=== PATIENT | female | born 1940 | race Caucasian/White ===

== ENCOUNTER → 2018-09-15 | Outpatient (CLI) | payer MEDICARE ==
[~2018-09-15] MED LIST: ALBU90OI6; ATOR10 PO; CIPR500 PO; FLUC150A PO; Flovent 110 MCG12 GM INH; Pyridium100 MG PO
== END | disposition home or self-care (01) ==
LOC: LAB SHORT 16:08 → LAB EV 16:08
DX: N39.0 Urinary tract infection, site not specified (principal)
CPT/HCPCS: 87077; 87086; 87186

== ENCOUNTER → 2021-04-29 | Outpatient (CLI) | payer MEDICARE ==
[2021-04-29 19:05] LABS: Protein, Urine Random 26.3 mg/dL (0.0-11.9)
[2021-04-29 19:06] LABS: Protein, Urine Quantitative 27.4 mg/dL (0.0-11.9)
[2021-04-29 19:14] LABS: Creatinine, Urine Random 81.3 mg/dL (27.00-270.00); Protein/Creat Ratio, Ur Random 0.3
[2021-04-29 19:15] LABS: Creatinine Urine 77.7 mg/dL (27.00-270.00)
== END | disposition home or self-care (01) ==
LOC: LAB 15:46 → LAB SHORT 15:46
PROVIDERS: Internal Medicine
DX: N18.4 Chronic kidney disease, stage 4 (severe) (principal)
CPT/HCPCS: 82570; 84156

== ENCOUNTER → 2023-03-11 | Outpatient (CLI) | payer MEDICARE ==
[2023-03-11 11:34] LABS: BASOPHILS ABSOLUTE AUTO 0.07 K/mm3 (0.00-0.23); BASOPHILS PERCENT AUTO 1 % (0-2); EOSINOPHILS ABSOLUTE AUTO 0.37 K/mm3 (0.00-0.68); EOSINOPHILS PERCENT AUTO 4 % (0-6); Hematocrit 39.5 % (33.0-51.0); Hemoglobin 12.8 g/dL (11.5-16.0); IMMATURE GRAN ABSOLUTE AUTO 0.02 K/mm3 (0.00-0.10); IMMATURE GRAN PERCENT AUTO 0 % (0-1); LYMPHOCYTES ABSOLUTE AUTO 2.64 K/mm3 (0.84-5.20); LYMPHOCYTES PERCENT AUTO 30 % (21-46); MONOCYTES ABSOLUTE AUTO 0.71 K/mm3 (0.16-1.47); MONOCYTES PERCENT AUTO 8 % (4-13); Mean Corpuscular HGB 31.8 pg (26.0-34.0); Mean Corpuscular HGB Conc 32.4 g/dL (31.5-36.5); Mean Corpuscular Volume 98 fL (80-100); Mean Platelet Volume 8.8 fL (9.1-12.4); NEUTROPHILS ABSOLUTE AUTO 4.89 K/mm3 (1.96-9.15); NEUTROPHILS PERCENT AUTO 56 % (41-73); Platelet Count 266 K/mm3 (150-400); RDW Coefficient Variation 13.6 % (11.7-14.2); Red Blood Cell Count 4.03 M/mm3 (3.80-5.20)
[2023-03-11 11:53] LABS: Albumin, Blood 3.4 g/dL (3.4-5.0); Albumin/Globulin Ratio 0.9 (0.8-1.8); Bilirubin, Total 0.2 mg/dL (0.1-1.0); Bun/Creatinine Ratio 16.8 (12.0-20.0); Calcium, Blood 8.6 mg/dL (8.5-10.1); Creatinine, Blood 1.49 mg/dL (0.40-1.00); Globulin, Blood 3.9 g/dL (2.2-4.0); Magnesium, Blood 1.9 mg/dL (1.6-2.4); Potassium, Blood 3.6 mmol/L (3.5-5.5); Thyroid Stimulating Hormone 1.955 uIU/mL (0.360-4.800); Total Protein, Blood 7.3 g/dL (6.4-8.2)
== END | disposition home or self-care (01) ==
LOC: LAB 11:28 → LAB SHORT 11:28
PROVIDERS: Physician Assistant
DX: R00.8 Other abnormalities of heart beat (principal); R53.83 Other fatigue
CPT/HCPCS: 80053; 83735; 84443; 85025

== ENCOUNTER 2023-04-08 16:19 | Inpatient (IN) | payer MEDICARE ==
[~2023-04-08] VITALS: Ht 167.6 cm; Wt 53.0 kg
[2023-04-08 17:30] VITALS: BP 171/89
[2023-04-08] MEDS ORDERED: Amlodipine Bes2.5 MG PO (18:06)
[2023-04-08] MEDS ORDERED: METO25ER PO (18:06)
[2023-04-08] MEDS ORDERED: ALBU90OI INH (18:07)
[2023-04-08] MEDS ORDERED: ASPI81CH PO (18:08)
[2023-04-08] MEDS ORDERED: MULTI-VITAMIN1 EAC2 PO (18:08)
--- NOTE | 2023-04-08 18:59 | NUR ---
PT WAS A DIRECT ADMIT ARRIVED TO PCU 13 VIA WHEELCHAIR PT IS HERE FOR 2 DEGREE HB PT WAS ON HOLTER MONTIOR DUE TO PALPITATIONS. PT IS ALERT AND ORIENTED X4 AMBULATORY HAS HX OF COPD AND IS A CURRENT EVERYDAY SMOKER SMOKES 1 PACK A DAY, NICOTINE PATCH PLACED. PT HAS SOB WITH EXERTION MOIST COUGH WHITE THIN SPUTUM. VITALS HRR SR WITH PVC'S NO EPISODES OF HEART BLOCK OR PAUSE YET, SBP ELEVATED AT 170-180'S, SATS ABOVE 93% AFEBRILE. IV PLACED ON LFA, EKG WAS DONE, PT STARTED ON A DIET TOLERATED WELL. PLAN TO CONTINUE TO MONITOR PT AT THIS TIME TO STOP METOPROLOL HOME DOSE FOR NOW. NO OTHER ISSUES ENCOUNTERED, CALL LIGHTS IN REACH WILL REPORT TO ONCOMING SHIFT
[2023-04-08 20:35] VITALS: BP 173/71
[2023-04-08 21:27] VITALS: BP 144/74
[2023-04-09] VITALS (9 sets, daily range): BP systolic 139–191; BP diastolic 64–96
[2023-04-09 04:05] LABS: BASOPHILS PERCENT AUTO 1 % (0-2); EOSINOPHILS ABSOLUTE AUTO 0.34 K/mm3 (0.00-0.68); EOSINOPHILS PERCENT AUTO 3 % (0-6); Hematocrit 36.8 % (33.0-51.0); Hemoglobin 12.2 g/dL (11.5-16.0); IMMATURE GRAN ABSOLUTE AUTO 0.05 K/mm3 (0.00-0.10); IMMATURE GRAN PERCENT AUTO 1 % (0-1); LYMPHOCYTES ABSOLUTE AUTO 2.44 K/mm3 (0.84-5.20); LYMPHOCYTES PERCENT AUTO 22 % (21-46); MONOCYTES ABSOLUTE AUTO 0.86 K/mm3 (0.16-1.47); MONOCYTES PERCENT AUTO 8 % (4-13); Mean Corpuscular HGB 31.9 pg (26.0-34.0); Mean Corpuscular HGB Conc 33.2 g/dL (31.5-36.5); Mean Corpuscular Volume 96 fL (80-100); Mean Platelet Volume 9.2 fL (9.1-12.4); NEUTROPHILS ABSOLUTE AUTO 7.25 K/mm3 (1.96-9.15); NEUTROPHILS PERCENT AUTO 66 % (41-73); Platelet Count 258 K/mm3 (150-400); RDW Coefficient Variation 13.6 % (11.7-14.2); Red Blood Cell Count 3.82 M/mm3 (3.80-5.20); White Blood Cell Count 11.04 K/mm3 (4.00-11.30)
[2023-04-09 04:19] LABS: International Normalized Ratio 1.03; Prothrombin Time Results 10.8 Sec (9.7-11.5)
[2023-04-09 04:30] LABS: Alanine Aminotransfer (ALT/SGP 15 U/L (12-78); Albumin, Blood 3.2 g/dL (3.4-5.0); Albumin/Globulin Ratio 0.9 (0.8-1.8); Alk Phos 65 U/L (50-136); Anion Gap 5 mmol/L (6-16); Aspartate Aminotrans (AST/SGOT 18 U/L (12-37); Bilirubin, Total 0.2 mg/dL (0.1-1.0); Blood Urea Nitrogen 21 mg/dL (8-24); Bun/Creatinine Ratio 16.9 (12.0-20.0); CHOL/HDL RATIO 3.6; CO2, Blood 24 mmol/L (21-32); Calcium, Blood 8.6 mg/dL (8.5-10.1); Chloride, Blood 115 mmol/L (98-108); Cholesterol 150 mg/dL (50-200); Creatinine, Blood 1.24 mg/dL (0.40-1.00); Globulin, Blood 3.4 g/dL (2.2-4.0); Glomerular Filtration Rate 43 (60-); Glucose, Blood 98 mg/dL (70-99); HDL Cholesterol 42 mg/dL (>39); Low Density Lipoprotein Chol 86 mg/dL (0-110); Magnesium, Blood 2.3 mg/dL (1.6-2.4); Phosphorus, Blood 3.2 mg/dL (2.5-4.9); Potassium, Blood 4.1 mmol/L (3.5-5.5); Sodium, Blood 144 mmol/L (136-145); Total Protein, Blood 6.6 g/dL (6.4-8.2); Triglycerides 112 mg/dL (30-160); Very Low Density Lipoprot Chol 22 mg/dL (6-32)
--- NOTE | 2023-04-09 06:26 | NUR ---
SHIFT SUMMARY PATIENT ALERT AND ORIENTED X4. STAND BY ASSIST TO THE RESTROOM. HAD NO COMPLAINTS OF PAIN OVERNIGHT. TREATMENT PER RT FOR SHORTNESS OF BREATH. THIS MORNING PATIENT WAS PLACED ON 3 LITERS O2 VIA NC SHE WAS SATING MID 80'S ON ROOM AIR, IT SUPPORT CONSULTANT RESIDENT NOTIFIED. MEDICATED ONCE PER EMAR FOR HYPERTENTION. WILL CONTINUE TO MONITOR. CALL LIGHT WITHIN REACH.
--- NOTE | 2023-04-09 09:53 | NUR ---
Pt is sitting up, eating breakfast, drinking coffee. Conversant, no obvious dyspnea but she states that she feels almost wheezy. Productive, yellow sputum coughed up frequently this morning. States she feels like she needs a breathing tx. RR 20/min and requiring 5 l/min of O2 to keep spo2 93% at this time. Lung sounds are coarse crackles anteriorly and wheezing and crackles noted on the lower lobes, auscultated posteriorly. Diminished in the bases. Respiratory therapist here to give breathing tx at this time.
--- NOTE | 2023-04-09 11:56 | NUR ---
Pt states that her breathing is better. Able to wean down to 2 l/min at this time, [id number] Apresoline IV given for systolic blood pressure greater than 170 mmHg. Provider notified.
--- NOTE | 2023-04-09 18:10 | NUR ---
Dyspnea noted with ambulation to the bathroom. SPO2 88% during the activity. Provider was notified. She also said that she was having a pounding heartbeat while up walking. Heart rate 99-107 bpm, sinus tachycardia while walking. No other ectopy noted. After sitting down to rest, and oxygen at 2 l/min, the symptoms resolved. She has not needed supplemental oxygen at rest this afternoon.
[2023-04-10 04:16] VITALS: BP 107/71
--- NOTE | 2023-04-10 06:07 | NUR ---
SHIFT SUMMARY PATIENT ALERT AND ORIENTED X4. INDEPENDENT TO THE RESTROOM. HAD NO COMPLAINTS OF PAIN OR SHORTNESS OF BREATH. REQUIRED 1 LITER O2 VIA NC TO MAINTAIN SPO2 >90%. BLOOD PRESSURE HYPERTENSIVE AT THE BEGINNING OF SHIFT, BUT RESPONDED WELL TO SCHEDULED AMLODIPINE. WILL CONTINUE TO MONITOR. CALL LIGHT WITHIN REACH.
[2023-04-10 07:56] VITALS: BP 126/74
[2023-04-10] MEDS ORDERED: BENZ100A PO (12:02)
[2023-04-10] MEDS ORDERED: GUAI600T33 PO (12:03)
[2023-04-10] MEDS ORDERED: NICO21TP TOP (12:04)
--- NOTE | 2023-04-10 13:55 | NUR ---
DISCHARGE: PT D/C FROM [facility] 13 @[id number]. DICHARGE INSTRUCTION AND EDUCATION PROVIDED. ALL BELONINGS WITH PT.
== END 2023-04-10 15:33 | disposition home or self-care (01) | DRG 310 ==
LOC: ICUE 16:19 → PCU 16:54
PROVIDERS: ADMIT Family Medicine
DX: I44.1 Atrioventricular block, second degree (principal); R79.89 Other specified abnormal findings of blood chemistry; R06.00 Dyspnea, unspecified; F17.210 Nicotine dependence, cigarettes, uncomplicated; Z66 Do not resuscitate; I08.1 Rheumatic disorders of both mitral and tricuspid valves; J43.9 Emphysema, unspecified; I12.9 Hypertensive chronic kidney disease with stage 1 through stage 4 chronic kidney disease, or unspecified chronic kidney disease; R09.02 Hypoxemia; J44.9 Chronic obstructive pulmonary disease, unspecified; N18.9 Chronic kidney disease, unspecified; Z88.5 Allergy status to narcotic agent; Z79.899 Other long term (current) drug therapy; Z79.2 Long term (current) use of antibiotics
CPT/HCPCS: 36415; 71046; 80053; 80061; 83036; 83735; 84100; 84443; 85025; 85610; 93005; 93010; 93246; 93306; 94640; 94664; 94760; 94761; 94762; A9270; J0360; J1644

== ENCOUNTER 2024-11-29 08:10 | Emergency (ER) | payer MEDICARE ==
[~2024-11-29] VITALS: Ht 167.6 cm; Wt 49.9 kg
[~2024-11-29 08:10] MED LIST changes: +ALBU90OI INH; +ASPI81CH PO; +Amlodipine Bes2.5 MG PO; +BENZ100A PO; +GUAI600T33 PO; +METO25ER PO; +MULTI-VITAMIN1 EAC2 PO; +NICO21TP TOP
[2024-11-29] MEDS ORDERED: Lidocaine 4% 1 Patch TOP ONE (08:45)
[2024-11-29] MEDS ORDERED: Ketorolac Tromethamine 15mg Vial IM ONE (08:45)
[2024-11-29] MEDS ORDERED: HYDR1TAB94 PO (12:27)
[2024-11-29 12:30] VITALS: BP 173/91
== END 2024-11-29 12:37 | disposition home or self-care (01) ==
LOC: ER 08:10
DX: M25.511 Pain in right shoulder (principal); R91.8 Other nonspecific abnormal finding of lung field; I12.9 Hypertensive chronic kidney disease with stage 1 through stage 4 chronic kidney disease, or unspecified chronic kidney disease; N18.2 Chronic kidney disease, stage 2 (mild); J44.9 Chronic obstructive pulmonary disease, unspecified; F17.210 Nicotine dependence, cigarettes, uncomplicated; Z88.5 Allergy status to narcotic agent; Z79.82 Long term (current) use of aspirin; Z79.899 Other long term (current) drug therapy
CPT/HCPCS: 71260; 73030; 96372-59; 99284-25; A9270; J1885; Q9967